=== PATIENT | female | born 1985 ===

== ENCOUNTER 2022-01-31 17:48 | Emergency (ER) | payer SELFPAY ==
[2022-01-31 17:57] VITALS: BP 136/80
[2022-01-31 18:40] LABS: Hematocrit 34.9 % (30.3-42.9); Hemoglobin 11.7 gm/dl (10.1-14.3); Mean Corpuscular HGB Conc 33 % (30-34); Mean Corpuscular Volume 86 fl (79-97); Platelet Count 236 K/mm3 (140-440); Red Blood Count 4.04 M/mm3 (3.65-5.03); Red Cell Distribution Width 14.5 % (13.2-15.2)
--- NOTE | 2022-01-31 22:27 | Ultrasound Report ---
ULTRASOUND OBSTETRIC INDICATION / CLINICAL INFORMATION: Possible disc. - Clinical Gestational Age (GA) in weeks, days: 18, 0 TECHNIQUE: Transabdominal. COMPARISON: None available. FINDINGS: Single intrauterine . Biparietal Diameter = 2.3 cm = 13, 6 weeks, days Head Circumference = 8.5 cm = 13, 5 weeks, days Abdominal Circumference = 7.1 cm = 13, 5 weeks, days Femur Length = 1.2 cm = 13, 3 weeks, days Average Ultrasound Age (AUA) = 13, 5 weeks, days Heart Rate: 153 beats per minute. Estimated Weight in grams (if calculated): 78 Estimated Weight Growth Percentile (if calculated): Not calculated. Position: cephalic. Cervix: closed. Length in cm (if measured): Not measured Placenta: anterior and free of the os. Amniotic Fluid Volume: normal Maternal Adnexa: Ovaries not visualized. IMPRESSION: 1. Single, living intrauterine with estimated sonographic age of 13, 5 weeks, days. 2. No significant sonographic abnormality. Signer Name: Ed Bhandari MD Signed: 01/31/2022 10:23 PM Workstation Name: [id number]
--- NOTE | 2022-01-31 22:38 | Emergency Department Report ---
ED Female HPI - General Chief complaint: Vaginal Bleeding Stated complaint: MISCARRIAGE Time Seen by Provider: 01/31/22 18:06 Source: patient Mode of arrival: Ambulatory Limitations: No Limitations - History of Present Illness Initial comments: Patient is a 36-year-old female estimated at 16 weeks gestation presenting with complaint of vaginal bleeding. States she was working tonight and felt a gush of fluid which turned out to be blood. She reports associated cramping lower abdominal pain. - Related Data Allergies Allergy/AdvReac Type Severity Reaction Status Date / Time No Known Allergies Allergy Unverified 01/31/22 17:57 ED Review of Systems ROS: Stated complaint: MISCARRIAGE Other details as noted in HPI Constitutional: denies: chills, fever Respiratory: denies: cough, shortness of breath, wheezing Cardiovascular: denies: chest pain, palpitations Gastrointestinal: denies: abdominal pain, nausea, diarrhea Genitourinary: denies: urgency, dysuria, discharge Musculoskeletal: denies: back pain, joint swelling, arthralgia Skin: denies: rash, lesions Neurological: denies: headache, weakness, paresthesias Psychiatric: denies: anxiety, depression ED Past Medical Hx - Social History Smoking Status: Never Smoker ED Physical Exam - General Limitations: No Limitations General appearance: alert, in no apparent distress - Head Head exam: Present: atraumatic, normocephalic - Respiratory Respiratory exam: Present: normal lung sounds bilaterally. Absent: respiratory distress - Cardiovascular Cardiovascular Exam: Present: regular rate, normal rhythm, normal heart sounds - GI/Abdominal GI/Abdominal exam: Present: soft. Absent: distended, tenderness - Rectal Rectal exam: Present: deferred - Neurological Exam Neurological exam: Present: alert, oriented X3 - Psychiatric Psychiatric exam: Present: normal affect, normal mood - Skin Skin exam: Present: warm, dry, intact, normal color ED Course Vital Signs 01/31/22 01/31/22 17:53 18:33 Temperature 98.3 F Pulse Rate 85 Respiratory 20 Rate Blood Pressure 136/80 [Right] O2 Sat by Pulse 100 100 Oximetry ED Medical Decision Making - Lab Data Result diagrams: 01/31/22 18:19 - Medical Decision Making Ultrasound reveals single intrauterine at 13 weeks 5 days gestation. I discussed results with the patient. States she will contact her [facility] for prompt follow-up. Stable for discharge. Critical care attestation.: If time is entered above; I have spent that time in minutes in the direct care of this critically ill patient, excluding procedure time. ED Disposition Clinical Impression: Threatened miscarriage in early Disposition: 01 HOME / SELF CARE / HOMELESS Is pt being admited?: No Condition: Stable Instructions: Vaginal Bleeding During , First Trimester, [id number], Threatened Miscarriage Additional Instructions: Please follow-up with your [facility] as discussed. You may return if your symptoms worsen. Time of Disposition: 22:38
== END 2022-01-31 23:03 | disposition home or self-care (01) ==
LOC: ED 17:48
DX: O20.0 Threatened abortion (principal); Z3A.16 16 weeks gestation of pregnancy
CPT/HCPCS: 36415; 76801; 84702; 85027; 99284